=== PATIENT | male | born 1995 | race African-American/Black ===

== ENCOUNTER 2020-05-17 20:01 | Emergency (ER) | payer SELFPAY ==
[~2020-05-17] VITALS: Ht 177.8 cm; Wt 65.0 kg
[2020-05-17 20:20] VITALS: BP 107/53
[2020-05-17] MEDS ORDERED: AZITHROMYCIN 500 MG TABLET PO ONE (21:45)
[2020-05-17] MEDS ORDERED: CEFTRIAXONE SODIUM 250 MG/VIAL IM ONE (21:45)
[2020-05-17 21:58] LABS: CLARITY URINE TURBID (CLEAR); COLOR URINE YELLOW (YELLOW); KETONES URINE TRACE (NEGATIVE); LEUKOCYTE ESTERASE URINE 1+ (NEGATIVE); NITRITE URINE NEGATIVE (NEGATIVE); OCCULT BLOOD URINE NEGATIVE (NEGATIVE); PROTEIN URINE NEGATIVE (NEGATIVE); SPECIFIC GRAVITY URINE 1.028 (1.005-1.030)
[2020-05-20 13:07] LABS: NEISSERIA GONORRHOEAE NAA Negative (Negative)
== END 2020-05-17 22:09 | disposition left against medical advice (07) ==
LOC: ER 20:01
DX: A64 Unspecified sexually transmitted disease (principal); N39.0 Urinary tract infection, site not specified
CPT/HCPCS: 81003; 87086; 87491; 87591; 96372; 99283; J0696